=== PATIENT | male | born 1960 | race Caucasian/White ===

== ENCOUNTER 2018-05-30 06:50 | Emergency (ER) | payer MEDICAID, MEDICARE, OTHER ==
[~2018-05-30] VITALS: Ht 182.9 cm; Wt 95.3 kg
[2018-05-30 07:12] VITALS: BP 122/77
--- NOTE | 2018-05-30 07:12 | NUR ---
ED Nurse Note: Pt walked into ER as stating "I am homeless and I need the list of shleters." VSS, ambulatory in stable condition, and aao x4.
[2018-05-30 07:51] VITALS: BP 126/73
--- NOTE | 2018-05-30 07:55 | NUR ---
ED Nurse Note: Pt was provided food and drinks and the list of shelters. Pt stated "I will pick the nursing home from this list." Pt has a phone and he said he will call few shelters and ask for more details. pt is wearing weather adequate clothing, ambulatory, and fully oriented. pt initially stated that he needs medication refill but later reported to doctor and nurse that he took all the meds and doesn't need any medications to be refilled. Bus tab was provided and explained that it is valid for 24 hours unlimited times. pt verbalized understanding and ambulated steadly to be discharged.
--- NOTE | 2018-05-30 08:01 | Emergency Room Report ---
History of Present Illness General Chief Complaint: Medication Refill Source: Patient Present Illness HPI 57-year-old male presents ED for evaluation. Patient states that he needs a place to "get medically stabilized". States he is homeless. States that he has a psychiatric history and had run out of his medications. went to another ER and got his medications Filled. Takes Seroquel and Lamictal. States He Took His Dose Just Prior to Arrival. Denies SI or HI. Denies Hearing Voices. Denies alcohol or drug use. No other aggravating relieving factors. Denies any other associated symptoms Allergies: Coded Allergies: No Known Allergies (Verified Allergy, Unknown, 04/03/09) Patient History Past Medical History: psych hx Past Surgical History: none Pertinent Family History: none Social History: Denies: smoking, alcohol use, drug use Immunizations: UTD Reviewed Nursing Documentation: PMH: Agreed; PSxH: Agreed Nursing Documentation-PM Past Medical History: No History, Except For History Of Psychiatric Problem: Yes - Bipolar Schizophrenia Review of Systems All Other Systems: negative except mentioned in HPI Physical Exam Vital Signs Date Time Temp Pulse Resp B/P (MAP) Pulse Ox O2 Delivery O2 Flow Rate FiO2 05/30/18 06:55 99.1 103 22 123/76 93 05/30/18 07:12 Room Air Sp02 EP Interpretation: reviewed, normal General Appearance: no apparent distress, alert, GCS 15, non-toxic Head: normocephalic, atraumatic Eyes: bilateral eye normal inspection, bilateral eye PERRL ENT: hearing grossly normal, normal pharynx, no angioedema, normal voice Neck: full range of motion, supple/symm/no masses Respiratory: chest non-tender, lungs clear, normal breath sounds, speaking full sentences Cardiovascular #1: regular rate, rhythm, no edema Cardiovascular #2: 2+ carotid (R), 2+ carotid (L), 2+ radial (R), 2+ radial (L) , 2+ dorsalis pedis (R), 2+ dorsalis pedis (L) Gastrointestinal: normal bowel sounds, non tender, soft, non-distended, no guarding, no rebound Rectal: deferred Genitourinary: normal inspection, no CVA tenderness Musculoskeletal: back normal, gait/station normal, normal range of motion, non- tender Neurologic: alert, oriented x3, responsive, motor strength/tone normal, sensory intact, speech normal Psychiatric: judgement/insight normal, memory normal, mood/affect normal, no suicidal/homicidal ideation Reflexes: 3+ bicep (R), 3+ bicep (L), 3+ tricep (R), 3+ tricep (L), 3+ knee (R) , 3+ knee (L) Skin: normal color, no rash, warm/dry, well hydrated Lymphatic: no adenopathy Medical Decision Making Homeless Attestation I, The treating physician Dr. Diaz, has assessed and agrees that patient is medically stable for discharge to an outpatient disposition. Diagnostic Impression: Primary Impression: Behavioral disorder Additional Impression: Housing lack ER Course Hospital Course 57-year-old male presents ED for behavioral evaluation. History of schizophrenia Clinical course Patient placed on stretcher. After initial history, physical exam reveals middle-aged male in no acute distress. Patient is awake alert oriented 3 during exam. No evidence of delusions. Patient maintains good eye contact. Answers questions appropriately. No signs of SI or HI Patient states that he has been going to multiple ERs to get his medications. He states he has his Lamictal and Seroquel. took it prior to arrival I see no reason for emergent psychiatric evaluation or medication at this time. Patient admittingly states that he is here for housing placement. Patient is safe for discharge. We'll provide correction referrals. Housing checklist completed Also provide mental health referrals. Patient states he has a psychiatrist but does not know his first name or where he works. Patient allowed to rest in now awake alert oriented x3. ambulating without difficulty. Family is at bedside and can take patient home. Diagnosis - behavioral disorder, housing lack stable and discharged to correction. take your medications as prescribed. Followup with psychiatry. Return to ED if symptoms recur or worsen Last Vital Signs Date Time Temp Pulse Resp B/P (MAP) Pulse Ox O2 Delivery O2 Flow Rate FiO2 05/30/18 07:51 98.0 103 21 126/73 99 Room Air Status: improved Disposition: HOME, SELF-CARE Condition: Stable Scripts Unable to Obtain Active Prescriptions or Reported Meds Referrals: NOT CHOSEN IPA/MD,REFERRING (PCP) [facility] + [facility] - Peds ER - [facility] Intake Hotline - Patient Instructions: Psychosis Additional Instructions: take your medications as prescribed. followup with your psychiatrist Andi Diaz MD May 30, 2018 08:01
== END 2018-05-30 08:00 | disposition home or self-care (01) ==
LOC: EMR 07:14
DX: Z76.0 Encounter for issue of repeat prescription (principal); Z59.0 Homelessness; F31.9 Bipolar disorder, unspecified; F20.9 Schizophrenia, unspecified
CPT/HCPCS: 99282